=== PATIENT | female | born 1960 | race Caucasian/White ===

== ENCOUNTER 2022-03-07 07:12 | Emergency (ER) | payer BC, OTHER ==
[~2022-03-07] VITALS: Ht 170.2 cm; Wt 88.9 kg
[2022-03-07 07:38] LABS: BASOPHILS % (AUTO) 0.6 % (0.0-5.0); EOSINOPHILS % (AUTO) 1.4 % (0.0-8.0); HEMATOCRIT 42.9 % (36-48); LYMPHOCYTES % (AUTO) 15.6 % (21.0-51.0); MEAN CORPUSCULAR HEMOGLOBIN 31.6 pg (27.0-33.0); MEAN CORPUSCULAR HGB CONC 33.6 g/dL (32.0-36.0); MEAN CORPUSCULAR VOLUME 94.3 fL (79-99); MONOCYTES % (AUTO) 5.4 % (3.0-13.0); NEUTROPHILS % (AUTO) 75.5 % (40.0-77.0); PLATELET COUNT (AUTO) 343 K/uL (130-400); RED BLOOD CELL COUNT(AUTO) 4.55 MIL/uL (4.00-5.50); RED CELL DISTRIBUTION WIDTH 12.2 % (11.0-15.5); WHITE BLOOD COUNT (AUTO) 12.2 K/uL (4.8-10.8)
[2022-03-07 07:47] LABS: POTASSIUM 3.9 mmol/L (3.5-5.1)
[2022-03-07 07:51] LABS: ALBUMIN 3.5 g/dL (3.5-5.0); TOTAL PROTEIN, SERUM 6.7 g/dL (6.0-8.3)
[2022-03-07] MEDS ORDERED: 0.9%NACL 1000ML 1,000 ML IV ONE (08:00)
[2022-03-07] MEDS ORDERED: KETOROLAC 15MG/ML VIAL (15MG/ML) ONE (08:07)
[2022-03-07] MEDS ORDERED: KETOROLAC 15MG/ML VIAL (15MG/ML) IV ONE (08:30)
[2022-03-07 08:51] LABS: APPEARANCE,URINE CLEAR (CLEAR); BILIRUBIN,URINE NEGATIVE (NEGATIVE); COLOR,URINE YELLOW (YELLOW); GLUCOSE, URINE (UA) NEGATIVE (NEGATIVE); KETONES,URINE NEGATIVE (NEGATIVE); LEUKOCYTE ESTERASE ,URINE TRACE Leu/uL (NEGATIVE); NITRATE,URINE NEGATIVE (NEGATIVE); OCCULT BLOOD,URINE NEGATIVE (NEGATIVE); PROTEIN,URINE 30 mg/dL (NEGATIVE); UROBILINOGEN,URINE 0.2 mg/dL (0.2-1.0)
[2022-03-07 09:06] LABS: BACTERIA,URINE Rare /HPF (None Seen); RBC,URINE 0-1 /HPF (0-1); SQUAMOUS EPITHELIAL CELL,UR 0-2 /HPF (0-2); WBC,URINE 0-1 /HPF (0-1)
[2022-03-07 10:34] VITALS: BP 114/70
[2022-03-07] MEDS ORDERED: CEPH500B PO (10:41)
[2022-03-07] MEDS ORDERED: CEFTRIAXONE 1G VIAL IVP ONE (11:00)
== END 2022-03-07 11:04 | disposition home or self-care (01) ==
LOC: EDH 07:12
DX: R55 Syncope and collapse (principal); E86.0 Dehydration; N39.0 Urinary tract infection, site not specified; Z20.822 Contact with and (suspected) exposure to COVID-19; E03.9 Hypothyroidism, unspecified; Z88.2 Allergy status to sulfonamides; Z98.890 Other specified postprocedural states
CPT/HCPCS: 99284; 96374; 70450; 87635; 96375; 83735; 84484; 80053; 85025; 87040 ×2; 87804 ×2; 83605; 81001; 36415; 93005; 84145; C9803; J7030; J0696; J1885